=== PATIENT | female | born 1945 | race Caucasian/White ===

== ENCOUNTER → 2016-09-29 | Outpatient (CLI) | payer MEDICARE, OTHER ==
[~2016-09-29] VITALS: Ht 157.5 cm; Wt 54.5 kg
[~2016-09-29] MED LIST: ADV100 IH; ADV250 IH; AMIO200T2 PO; DSS100 PO; FLUT1AER PO; FOLI0.8T2 PO; FOLI1 PO; GUAIF10 PO; HYDR-305 PO; IPRA3AMP4 NEB; LEVO250 PO; LIDO700A TD; MEGE400O4 PO; ONDA4 PO; PREG25 PO; TIOT4MIS5 IH
[2016-09-29 12:29] VITALS: BP 112/48
== END | disposition home or self-care (01) ==
LOC: SRCNTR 12:04
PROVIDERS: ATTEND Internal Medicine Critical Care Medicine
DX: J44.9 Chronic obstructive pulmonary disease, unspecified (principal); E85.9 Amyloidosis, unspecified; I12.0 Hypertensive chronic kidney disease with stage 5 chronic kidney disease or end stage renal disease; N18.6 End stage renal disease; Z72.0 Tobacco use; Z99.2 Dependence on renal dialysis
CPT/HCPCS: G0463

== ENCOUNTER 2016-10-15 09:57 | Emergency (ER) | payer MEDICARE, OTHER ==
[~2016-10-15] VITALS: Ht 162.6 cm; Wt 55.0 kg
[~2016-10-15 09:57] MED LIST changes: -ADV100 IH; -ADV250 IH; -AMIO200T2 PO; -DSS100 PO; -GUAIF10 PO; -HYDR-305 PO; -IPRA3AMP4 NEB; -LEVO250 PO; -LIDO700A TD; -MEGE400O4 PO; -ONDA4 PO
[2016-10-15 11:28] VITALS: BP 129/66
[2016-10-15] MEDS ORDERED: ACETAMINOPHEN/CODEINE 300-30 MG TABLET PO ONE (11:45)
[2016-11-08] MEDS ORDERED: ADV250 IH (08:47)
== END 2016-10-15 12:24 | disposition home or self-care (01) ==
LOC: EMS 09:59
DX: M51.36 Other intervertebral disc degeneration, lumbar region (principal); I13.2 Hypertensive heart and chronic kidney disease with heart failure and with stage 5 chronic kidney disease, or end stage renal disease; I50.9 Heart failure, unspecified; N18.6 End stage renal disease; I48.91 Unspecified atrial fibrillation; Z88.8 Allergy status to other drugs, medicaments and biological substances; J44.9 Chronic obstructive pulmonary disease, unspecified
CPT/HCPCS: 72100; 99284

== ENCOUNTER → 2016-11-08 | Outpatient (CLI) | payer MEDICARE, OTHER ==
[~2016-11-08] VITALS: Ht 162.6 cm; Wt 54.8 kg
[~2016-11-08] MED LIST changes: +ADV100 IH; +ADV250 IH; +AMIO200T2 PO; +DSS100 PO; +GUAIF10 PO; +HYDR-305 PO; +IPRA3AMP4 NEB; +LEVO250 PO; +LIDO700A TD; +MEGE400O4 PO; +ONDA4 PO
[2016-11-08 08:31] VITALS: BP 120/49
== END | disposition home or self-care (01) ==
LOC: HBOWC 07:29
PROVIDERS: ATTEND Emergency Medicine Undersea and Hyperbaric Medicine
DX: L89.322 Pressure ulcer of left buttock, stage 2 (principal); I13.2 Hypertensive heart and chronic kidney disease with heart failure and with stage 5 chronic kidney disease, or end stage renal disease; N18.6 End stage renal disease; I50.9 Heart failure, unspecified; J44.9 Chronic obstructive pulmonary disease, unspecified; I48.91 Unspecified atrial fibrillation; Z72.0 Tobacco use; Z95.1 Presence of aortocoronary bypass graft; Z99.2 Dependence on renal dialysis
CPT/HCPCS: 97597; 97598

== ENCOUNTER → 2016-11-09 | Outpatient (CLI) | payer MEDICARE, OTHER ==
[~2016-11-09] MED LIST changes: -FLUT1AER PO; +IOVERSOL 350 MG/ML 100 ML VIAL ONE; +SODIUM CHLORIDE 0.9% 100 ML ONE
== END | disposition home or self-care (01) ==
LOC: RADMN 10:26
PROVIDERS: ATTEND Nurse Practitioner
DX: J98.11 Atelectasis (principal); K80.20 Calculus of gallbladder without cholecystitis without obstruction; N28.1 Cyst of kidney, acquired; K57.30 Diverticulosis of large intestine without perforation or abscess without bleeding; K44.9 Diaphragmatic hernia without obstruction or gangrene; Z96.642 Presence of left artificial hip joint
CPT/HCPCS: 74177; J7050; Q9967

== ENCOUNTER 2016-11-15 11:28 | Inpatient (IN) | payer MEDICARE, OTHER ==
[~2016-11-15] VITALS: Ht 162.6 cm; Wt 60.2 kg
[~2016-11-15 11:28] MED LIST changes: -ADV100 IH; -AMIO200T2 PO; -DSS100 PO; -GUAIF10 PO; -HYDR-305 PO; -IOVERSOL 350 MG/ML 100 ML VIAL ONE; -IPRA3AMP4 NEB; -LEVO250 PO; -LIDO700A TD; -MEGE400O4 PO; -ONDA4 PO; -SODIUM CHLORIDE 0.9% 100 ML ONE
[2016-11-15] MEDS ORDERED: SODIUM CHLORIDE 0.9% 500 ML IV ONE ×2 (12:00→15:00)
[2016-11-15 12:10] LABS: BASOPHILS % (AUTO) 0.7 % (0.0-2.0); EOSINOPHILS % (AUTO) 0.6 % (1.0-6.0); HEMATOCRIT 34.7 % (36-46); HEMOGLOBIN 11.1 g/dL (12.0-16.0); LYMPHOCYTES # (AUTO) 0.6 K/uL (1.0-4.8); LYMPHOCYTES % (AUTO) 6.8 % (22.0-44.0); MEAN CORPUSCULAR HEMOGLOBIN 32.9 pg (26.0-34.0); MEAN CORPUSCULAR VOLUME 103 fL (80-100); MONOCYTES # (AUTO) 0.3 K/uL (0.1-1.0); MONOCYTES % (AUTO) 3.9 % (2.0-9.0); NEUTROPHILS # (AUTO) 7.5 K/uL (1.8-7.7); PLATELET COUNT (AUTO) 133 K/uL (150-450); RED BLOOD CELL COUNT(AUTO) 3.38 MIL/uL (4.00-5.20); RED CELL DISTRIBUTION WIDTH 19.7 % (11.5-14.5); WHITE BLOOD COUNT (AUTO) 8.5 K/uL (4.5-11.0)
[2016-11-15 12:20] LABS: ANION GAP 4 mmol/L (8-16); CALCIUM, TOTAL 8.5 mg/dL (8.8-10.5); CARBON DIOXIDE 35 mmol/L (22-29); CHLORIDE 98 mmol/L (98-107); GLOMERULAR FILTR. RATE CALC 17 mL/min (>60); POTASSIUM 3.9 mmol/L (3.5-5.1); SODIUM SERUM 137 mmol/L (136-145); UREA NITROGEN, BLOOD 9 mg/dL (7-18)
[2016-11-15 12:24] LABS: INR 1.3 (0.9-1.1)
[2016-11-15 12:25] LABS: ALANINE AMINOTRANSFERASE 9 U/L (12-78); ALBUMIN 2.6 g/dL (3.4-5.0); ASPARTATE AMINOTRANSFERASE 29 U/L (15-37); BILIRUBIN,TOTAL 0.7 mg/dL (0.1-1.0); CREATINE KINASE, TOTAL 46 U/L (26-192); TOTAL PROTEIN, SERUM 7.6 g/dL (6.4-8.2)
[2016-11-15 12:30] LABS: RBC MORPHOLOGY COMMENT ABNORMAL RBC MORPH
[2016-11-15 12:32] LABS: B-TYPE NATRIURETIC PEPTIDE 2210 pg/mL (0-100)
[2016-11-15] MEDS ORDERED: ACETAMINOPHEN 325 MG TABLET PO PRN (14:15)
[2016-11-15] MEDS ORDERED: ONDANSETRON HCL 4 MG/2 ML VIAL IVP PRN ×2 (14:15→15:45)
[2016-11-15] MEDS ORDERED: 0.9% SODIUM CHLORIDE 10 ML SYRINGE IVP PRN (14:15)
[2016-11-15] MEDS ORDERED: SODIUM CHLORIDE 0.9% 1,000 ML IV ONE ×2 (14:15→15:45)
[2016-11-15] MEDS ORDERED: MORPHINE SULFATE 2 MG/ML SYRINGE IVP PRN (15:45)
[2016-11-15] MEDS ORDERED: ZOLPIDEM TARTRATE 5 MG TABLET PO PRN (15:45)
[2016-11-15] MEDS ORDERED: BISACODYL 10 MG RECTAL RECTAL SUPPOSITORY PR PRN (15:45)
[2016-11-15] MEDS ORDERED: MAGNESIUM HYDROXIDE SUSPENSION 30 ML UDCUP PO PRN (15:45)
[2016-11-15] MEDS: DOCUSATE SODIUM 100 MG CAPSULE PO SCH (21:00)
[2016-11-15 21:59] VITALS: BP 106/62
[2016-11-15 23:28] VITALS: BP 105/50
[2016-11-15] MEDS: HYDROCODONE/ACETAMINOPHEN 5-325 MG TABLET PO PRN (23:56)
[2016-11-16 04:53] VITALS: BP 94/52
[2016-11-16 07:18] VITALS: BP 96/58
[2016-11-16] MEDS ORDERED: SODIUM CHLORIDE 0.9% 250 ML IV ONE (08:15)
[2016-11-16] MEDS: VITAMIN B COMP/VIT C/FOLIC ACID CAPSULE PO SCH (08:47)
[2016-11-16] MEDS: PREGABALIN 25 MG CAPSULE PO SCH (08:47)
[2016-11-16] MEDS: PANTOPRAZOLE SODIUM 40 MG DR TABLET PO SCH (08:47)
[2016-11-16] MEDS: FOLIC ACID 1 MG TABLET PO SCH (08:47)
[2016-11-16] MEDS: TIOTROPIUM BROMIDE 18 MCG/INH HANDIHALER [5] IH SCH (08:47)
[2016-11-16] MEDS: DOCUSATE SODIUM 100 MG CAPSULE PO SCH ×2 (09:00→20:42)
[2016-11-16] MEDS ORDERED: DIGOXIN 250 MCG/ML 2 ML AMP IVP ONE (09:30)
[2016-11-16] MEDS: HYDROCODONE/ACETAMINOPHEN 5-325 MG TABLET PO PRN ×2 (10:07→16:19)
[2016-11-16 11:05] VITALS: BP 103/89
[2016-11-16] MEDS: APIXABAN 2.5 MG TABLET PO SCH ×2 (13:03→20:42)
[2016-11-16 15:13] VITALS: BP 116/81
[2016-11-16] MEDS: AMIODARONE HCL 200 MG TABLET PO SCH ×2 (16:18→20:42)
[2016-11-16 19:54] VITALS: BP 107/50
[2016-11-16 23:19] VITALS: BP 105/59
[2016-11-17 04:43] VITALS: BP 93/57
[2016-11-17 07:02] LABS: BASOPHILS % (AUTO) 0.3 % (0.0-2.0); EOSINOPHILS % (AUTO) 1.9 % (1.0-6.0); HEMATOCRIT 32.4 % (36-46); HEMOGLOBIN 10.1 g/dL (12.0-16.0); LYMPHOCYTES # (AUTO) 0.8 K/uL (1.0-4.8); LYMPHOCYTES % (AUTO) 11.9 % (22.0-44.0); MEAN CORPUSCULAR HEMOGLOBIN 32.6 pg (26.0-34.0); MEAN CORPUSCULAR HGB CONC 31.1 G/dL (31.0-37.0); MEAN CORPUSCULAR VOLUME 105 fL (80-100); MONOCYTES # (AUTO) 0.4 K/uL (0.1-1.0); MONOCYTES % (AUTO) 6.1 % (2.0-9.0); NEUTROPHILS # (AUTO) 5.7 K/uL (1.8-7.7); NEUTROPHILS % (AUTO) 79.8 % (40.0-70.0); RED CELL DISTRIBUTION WIDTH 19.9 % (11.5-14.5); WHITE BLOOD COUNT (AUTO) 7.1 K/uL (4.5-11.0)
[2016-11-17 07:23] LABS: CALCIUM, TOTAL 8.2 mg/dL (8.8-10.5); CREATININE 4.54 mg/dL (0.60-1.30); POTASSIUM 4.4 mmol/L (3.5-5.1)
[2016-11-17 07:28] VITALS: BP 91/50
[2016-11-17 09:57] LABS: PLATELET COUNT (AUTO) 108 K/uL (150-450); RBC MORPHOLOGY COMMENT ABNORMAL RBC MORPH
[2016-11-17] MEDS: APIXABAN 2.5 MG TABLET PO SCH ×2 (10:23→20:21)
[2016-11-17] MEDS: VITAMIN B COMP/VIT C/FOLIC ACID CAPSULE PO SCH (10:23)
[2016-11-17] MEDS: PREGABALIN 25 MG CAPSULE PO SCH (10:23)
[2016-11-17] MEDS: DOCUSATE SODIUM 100 MG CAPSULE PO SCH ×2 (10:23→20:20)
[2016-11-17] MEDS: FOLIC ACID 1 MG TABLET PO SCH (10:23)
[2016-11-17] MEDS: TIOTROPIUM BROMIDE 18 MCG/INH HANDIHALER [5] IH SCH (10:23)
[2016-11-17] MEDS: PANTOPRAZOLE SODIUM 40 MG DR TABLET PO SCH (10:23)
[2016-11-17] MEDS: AMIODARONE HCL 200 MG TABLET PO SCH ×3 (10:25→20:21)
[2016-11-17 11:24] VITALS: BP 93/58
[2016-11-17] MEDS ORDERED: VANCOMYCIN HCL 1 GM/D5% WATER 200 ML IV ONE (12:00)
[2016-11-17] MEDS ORDERED: SODIUM CHLORIDE 0.9% 1,000 ML IV ONE (12:29)
[2016-11-17] MEDS ORDERED: DIGOXIN 250 MCG/ML 2 ML AMP IVP ONE (13:30)
[2016-11-17 15:21] VITALS: BP 94/75
[2016-11-17] MEDS ORDERED: SODIUM CHLORIDE 0.9% 250 ML IV ONE (16:54)
[2016-11-17] MEDS ORDERED: VANCOMYCIN HCL 1 GM/D5% WATER 200 ML IV PRN (18:00)
[2016-11-17 19:25] VITALS: BP 115/51
[2016-11-18 01:16] VITALS: BP 120/59
[2016-11-18] MEDS: HYDROCODONE/ACETAMINOPHEN 5-325 MG TABLET PO PRN ×2 (01:27→16:04)
[2016-11-18 04:24] VITALS: BP 115/56
[2016-11-18 07:07] VITALS: BP 93/47
[2016-11-18 07:28] LABS: BASOPHILS % (AUTO) 0.3 % (0.0-2.0); EOSINOPHILS % (AUTO) 1.8 % (1.0-6.0); HEMATOCRIT 31.6 % (36-46); LYMPHOCYTES % (AUTO) 12.8 % (22.0-44.0); MEAN CORPUSCULAR HEMOGLOBIN 33.1 pg (26.0-34.0); MEAN CORPUSCULAR HGB CONC 31.6 G/dL (31.0-37.0); MEAN CORPUSCULAR VOLUME 105 fL (80-100); MONOCYTES # (AUTO) 0.4 K/uL (0.1-1.0); MONOCYTES % (AUTO) 5.8 % (2.0-9.0); NEUTROPHILS # (AUTO) 6.1 K/uL (1.8-7.7); NEUTROPHILS % (AUTO) 79.3 % (40.0-70.0); PLATELET COUNT (AUTO) 102 K/uL (150-450); RED BLOOD CELL COUNT(AUTO) 3.02 MIL/uL (4.00-5.20); RED CELL DISTRIBUTION WIDTH 20.2 % (11.5-14.5); WHITE BLOOD COUNT (AUTO) 7.7 K/uL (4.5-11.0)
[2016-11-18 07:33] LABS: RBC MORPHOLOGY COMMENT ABNORMAL RBC MORPH
[2016-11-18 07:59] LABS: CALCIUM, TOTAL 8.4 mg/dL (8.8-10.5); CREATININE 3.53 mg/dL (0.60-1.30); POTASSIUM 4.6 mmol/L (3.5-5.1)
[2016-11-18 08:00] LABS: DIGOXIN 2.06 ng/mL (0.90-2.00)
[2016-11-18] MEDS: TIOTROPIUM BROMIDE 18 MCG/INH HANDIHALER [5] IH SCH (08:56)
[2016-11-18] MEDS: VITAMIN B COMP/VIT C/FOLIC ACID CAPSULE PO SCH (08:57)
[2016-11-18] MEDS: AMIODARONE HCL 200 MG TABLET PO SCH ×3 (08:57→20:03)
[2016-11-18] MEDS: PANTOPRAZOLE SODIUM 40 MG DR TABLET PO SCH (08:57)
[2016-11-18] MEDS: APIXABAN 2.5 MG TABLET PO SCH ×2 (08:57→20:03)
[2016-11-18] MEDS: DOCUSATE SODIUM 100 MG CAPSULE PO SCH ×2 (08:57→20:02)
[2016-11-18] MEDS: PREGABALIN 25 MG CAPSULE PO SCH (08:57)
[2016-11-18] MEDS: FOLIC ACID 1 MG TABLET PO SCH (08:57)
[2016-11-18 11:00] VITALS: BP 98/43
[2016-11-18] MEDS: ACETAMINOPHEN 325 MG TABLET PO PRN ×2 (12:01→20:08)
[2016-11-18 15:04] VITALS: BP 111/40
[2016-11-18 19:33] VITALS: BP 106/73
[2016-11-19] VITALS (7 sets, daily range): BP systolic 94–118; BP diastolic 44–56
[2016-11-19] MEDS ORDERED: SODIUM CHLORIDE 0.9% 2,000 ML IV ONE (05:36)
[2016-11-19 05:55] LABS: BASOPHILS % (AUTO) 0.6 % (0.0-2.0); HEMOGLOBIN 10.3 g/dL (12.0-16.0); LYMPHOCYTES # (AUTO) 0.9 K/uL (1.0-4.8); LYMPHOCYTES % (AUTO) 14.5 % (22.0-44.0); MEAN CORPUSCULAR HEMOGLOBIN 32.9 pg (26.0-34.0); MEAN CORPUSCULAR HGB CONC 31.2 G/dL (31.0-37.0); MEAN CORPUSCULAR VOLUME 105 fL (80-100); MONOCYTES # (AUTO) 0.4 K/uL (0.1-1.0); MONOCYTES % (AUTO) 6.2 % (2.0-9.0); NEUTROPHILS # (AUTO) 4.8 K/uL (1.8-7.7); NEUTROPHILS % (AUTO) 75.7 % (40.0-70.0); PLATELET COUNT (AUTO) 92 K/uL (150-450); RED BLOOD CELL COUNT(AUTO) 3.13 MIL/uL (4.00-5.20); RED CELL DISTRIBUTION WIDTH 19.5 % (11.5-14.5); WHITE BLOOD COUNT (AUTO) 6.3 K/uL (4.5-11.0)
[2016-11-19 06:27] LABS: CALCIUM, TOTAL 8.4 mg/dL (8.8-10.5); CREATININE 4.38 mg/dL (0.60-1.30); POTASSIUM 4.7 mmol/L (3.5-5.1)
[2016-11-19 09:03] LABS: RBC MORPHOLOGY COMMENT DIMORPHIC RBC
[2016-11-19] MEDS: PANTOPRAZOLE SODIUM 40 MG DR TABLET PO SCH (09:50)
[2016-11-19] MEDS: PREGABALIN 25 MG CAPSULE PO SCH (09:50)
[2016-11-19] MEDS: TIOTROPIUM BROMIDE 18 MCG/INH HANDIHALER [5] IH SCH (09:50)
[2016-11-19] MEDS: VITAMIN B COMP/VIT C/FOLIC ACID CAPSULE PO SCH (09:50)
[2016-11-19] MEDS: AMIODARONE HCL 200 MG TABLET PO SCH ×3 (09:50→20:12)
[2016-11-19] MEDS: APIXABAN 2.5 MG TABLET PO SCH ×2 (09:50→20:12)
[2016-11-19] MEDS: DOCUSATE SODIUM 100 MG CAPSULE PO SCH ×2 (09:51→20:12)
[2016-11-19] MEDS: FOLIC ACID 1 MG TABLET PO SCH (09:56)
[2016-11-19] MEDS: HYDROCODONE/ACETAMINOPHEN 5-325 MG TABLET PO PRN ×2 (14:13→20:12)
[2016-11-19] MEDS ORDERED: VANCOMYCIN HCL 1 GM/D5% WATER 200 ML IV ONE (16:00)
[2016-11-19] MEDS: ACETAMINOPHEN 325 MG TABLET PO PRN (16:46)
[2016-11-20 04:27] VITALS: BP 96/50
[2016-11-20 06:31] LABS: BASOPHILS # (AUTO) 0.02 K/uL (0.00-0.20); BASOPHILS % (AUTO) 0.3 % (0.0-2.0); EOSINOPHILS # (AUTO) 0.14 K/uL (0.00-0.70); EOSINOPHILS % (AUTO) 2.11 % (1.0-6.0); HEMATOCRIT 31.1 % (36-46); HEMOGLOBIN 9.9 g/dL (12.0-16.0); LYMPHOCYTES # (AUTO) 0.7 K/uL (1.0-4.8); LYMPHOCYTES % (AUTO) 10.8 % (22.0-44.0); MEAN CORPUSCULAR HEMOGLOBIN 33.1 pg (26.0-34.0); MEAN CORPUSCULAR HGB CONC 31.7 G/dL (31.0-37.0); MEAN CORPUSCULAR VOLUME 104 fL (80-100); MONOCYTES # (AUTO) 0.4 K/uL (0.1-1.0); MONOCYTES % (AUTO) 6.3 % (2.0-9.0); NEUTROPHILS # (AUTO) 5.4 K/uL (1.8-7.7); NEUTROPHILS % (AUTO) 80.5 % (40.0-70.0); PLATELET COUNT (AUTO) 90 K/uL (150-450); RED BLOOD CELL COUNT(AUTO) 2.98 MIL/uL (4.00-5.20); RED CELL DISTRIBUTION WIDTH 20.3 % (11.5-14.5); WHITE BLOOD COUNT (AUTO) 6.7 K/uL (4.5-11.0)
[2016-11-20 06:46] LABS: ALBUMIN 1.9 g/dL (3.4-5.0); BILIRUBIN,TOTAL 0.7 mg/dL (0.1-1.0); CALCIUM, TOTAL 7.8 mg/dL (8.8-10.5); CREATININE 3.42 mg/dL (0.60-1.30); POTASSIUM 5.4 mmol/L (3.5-5.1); TOTAL PROTEIN, SERUM 6.3 g/dL (6.4-8.2)
[2016-11-20 06:58] VITALS: BP 96/49
[2016-11-20 08:05] LABS: RBC MORPHOLOGY COMMENT ABNORMAL RBC MORPH
[2016-11-20] MEDS ORDERED: AMIO200T2 PO (08:43)
[2016-11-20] MEDS: TIOTROPIUM BROMIDE 18 MCG/INH HANDIHALER [5] IH SCH (08:44)
[2016-11-20] MEDS: DOCUSATE SODIUM 100 MG CAPSULE PO SCH (08:45)
[2016-11-20] MEDS: AMIODARONE HCL 200 MG TABLET PO SCH (08:45)
[2016-11-20] MEDS: FOLIC ACID 1 MG TABLET PO SCH (08:45)
[2016-11-20] MEDS: PANTOPRAZOLE SODIUM 40 MG DR TABLET PO SCH (08:45)
[2016-11-20] MEDS: PREGABALIN 25 MG CAPSULE PO SCH (08:45)
[2016-11-20] MEDS: VITAMIN B COMP/VIT C/FOLIC ACID CAPSULE PO SCH (08:45)
[2016-11-20] MEDS: APIXABAN 2.5 MG TABLET PO SCH (08:45)
[2016-11-20 11:45] VITALS: BP 108/52
[2016-11-20] MEDS: HYDROCODONE/ACETAMINOPHEN 5-325 MG TABLET PO PRN (13:45)
[2016-11-22] MEDS ORDERED: EPOETIN ALFA 10,000 UNITS/ML 2 ML VIAL SQ SCH (09:00)
== END 2016-11-20 14:05 | DRG 871 ==
LOC: EMS 11:30 → 5N 18:53
PROVIDERS: ADMIT Internal Medicine; ATTEND Internal Medicine
PROC: 5A1D60Z (ICD-10-PCS; principal; 2016-11-17)
DX: A41.89 Other specified sepsis (principal); N18.6 End stage renal disease; E43 Unspecified severe protein-calorie malnutrition; E85.9 Amyloidosis, unspecified; I50.32 Chronic diastolic (congestive) heart failure; I13.2 Hypertensive heart and chronic kidney disease with heart failure and with stage 5 chronic kidney disease, or end stage renal disease; R78.81 Bacteremia; I42.8 Other cardiomyopathies; Z94.84 Stem cells transplant status; E87.8 Other disorders of electrolyte and fluid balance, not elsewhere classified; D64.9 Anemia, unspecified; J44.9 Chronic obstructive pulmonary disease, unspecified; I34.0 Nonrheumatic mitral (valve) insufficiency; I35.0 Nonrheumatic aortic (valve) stenosis; I48.0 Paroxysmal atrial fibrillation; D63.8 Anemia in other chronic diseases classified elsewhere; D69.6 Thrombocytopenia, unspecified; L89.152 Pressure ulcer of sacral region, stage 2; Z68.22 Body mass index [BMI] 22.0-22.9, adult; Z99.2 Dependence on renal dialysis; Z79.51 Long term (current) use of inhaled steroids; Z79.899 Other long term (current) drug therapy; Z90.49 Acquired absence of other specified parts of digestive tract; Z95.810 Presence of automatic (implantable) cardiac defibrillator; Z87.01 Personal history of pneumonia (recurrent)
CPT/HCPCS: 87040; 87081; 87340; 90935; 93005; 93306; 96360; 96361; 97162; 97166; 99285; J1160; J3370; J7030; J7040; J7050

== ENCOUNTER → 2017-01-11 | Outpatient (CLI) | payer MEDICARE, OTHER ==
[~2017-01-11] MED LIST changes: +ADV100 IH; +AMIO200T2 PO; +DSS100 PO; +GUAIF10 PO; +HYDR-305 PO; +IPRA3AMP4 NEB; +LEVO250 PO; +LIDO700A TD; +MEGE400O4 PO; +ONDA4 PO
== END | disposition home or self-care (01) ==
LOC: RADMN 09:56
PROVIDERS: ATTEND Internal Medicine
DX: M41.86 Other forms of scoliosis, lumbar region (principal); M47.816 Spondylosis without myelopathy or radiculopathy, lumbar region; J90 Pleural effusion, not elsewhere classified; J98.11 Atelectasis; R91.8 Other nonspecific abnormal finding of lung field; N26.1 Atrophy of kidney (terminal); R18.8 Other ascites; M48.05 Spinal stenosis, thoracolumbar region; M48.06 Spinal stenosis, lumbar region; M48.07 Spinal stenosis, lumbosacral region; I77.811 Abdominal aortic ectasia; K57.30 Diverticulosis of large intestine without perforation or abscess without bleeding; I70.0 Atherosclerosis of aorta; M85.88 Other specified disorders of bone density and structure, other site; M25.78 Osteophyte, vertebrae
CPT/HCPCS: 72131

== ENCOUNTER 2017-01-16 09:10 | Inpatient (IN) | payer MEDICARE, OTHER ==
[~2017-01-16] VITALS: Ht 165.1 cm; Wt 58.2 kg
[~2017-01-16 09:10] MED LIST changes: -ADV100 IH; +ATROPINE SULFATE 0.1 MG/ML 10 ML SYRINGE IVP ONE; -DSS100 PO; +EPINEPHrine 1:10,000 [1 MG/10 ML] SYRINGE IVP ONE; -GUAIF10 PO; -HYDR-305 PO; -IPRA3AMP4 NEB; -LEVO250 PO; -LIDO700A TD; -MEGE400O4 PO; -ONDA4 PO; +SODIUM BICARBONATE [ADULT] 8.4% 50 MEQ/50 ML SYRINGE IVP ONE
[2017-01-16] MEDS ORDERED: HYDR-305 PO (09:25)
[2017-01-16] MEDS ORDERED: DSS100 PO (09:25)
[2017-01-16] MEDS ORDERED: ADV100 IH (09:25)
[2017-01-16] MEDS ORDERED: LEVO250 PO (09:25)
[2017-01-16] MEDS ORDERED: LIDO700A TD (09:25)
[2017-01-16] MEDS ORDERED: ONDA4 PO (09:25)
[2017-01-16 09:47] LABS: EOSINOPHILS % (AUTO) 0.2 % (1.0-6.0); HEMATOCRIT 36.3 % (36-46); LYMPHOCYTES # (AUTO) 0.6 K/uL (1.0-4.8); LYMPHOCYTES % (AUTO) 3.4 % (22.0-44.0); MEAN CORPUSCULAR HEMOGLOBIN 31.1 pg (26.0-34.0); MEAN CORPUSCULAR HGB CONC 30.3 G/dL (31.0-37.0); MEAN CORPUSCULAR VOLUME 103 fL (80-100); MONOCYTES # (AUTO) 0.3 K/uL (0.1-1.0); MONOCYTES % (AUTO) 1.7 % (2.0-9.0); NEUTROPHILS # (AUTO) 17.7 K/uL (1.8-7.7); PLATELET COUNT (AUTO) 83 K/uL (150-450); RED BLOOD CELL COUNT(AUTO) 3.54 MIL/uL (4.00-5.20); WHITE BLOOD COUNT (AUTO) 18.7 K/uL (4.5-11.0)
[2017-01-16 09:57] LABS: ANION GAP 9 mmol/L (8-16); CALCIUM, TOTAL 9.4 mg/dL (8.8-10.5); CARBON DIOXIDE 29 mmol/L (22-29); CHLORIDE 97 mmol/L (98-107); CREATININE 4.35 mg/dL (0.60-1.30); GLOMERULAR FILTR. RATE CALC 10 mL/min (>60); NEUTROPHILS % (AUTO) 94.7 % (40.0-70.0); POTASSIUM 4.6 mmol/L (3.5-5.1); SODIUM SERUM 135 mmol/L (136-145); UREA NITROGEN, BLOOD 38 mg/dL (7-18)
[2017-01-16 10:03] LABS: ALANINE AMINOTRANSFERASE 22 U/L (12-78); ASPARTATE AMINOTRANSFERASE 72 U/L (15-37); BILIRUBIN,TOTAL 1.4 mg/dL (0.1-1.0); CREATINE KINASE, TOTAL 31 U/L (26-192); TOTAL PROTEIN, SERUM 7.1 g/dL (6.4-8.2)
[2017-01-16 10:18] LABS: B-TYPE NATRIURETIC PEPTIDE 1410 pg/mL (0-100)
[2017-01-16 10:21] LABS: INR 1.7 (0.9-1.1); PROTHROMBIN TIME 18.3 SEC (9.4-11.6)
[2017-01-16] MEDS ORDERED: MEGE400O4 PO (10:42)
[2017-01-16] MEDS ORDERED: GUAIF10 PO (10:42)
[2017-01-16] MEDS ORDERED: IPRA3AMP4 NEB (10:42)
[2017-01-16] MEDS ORDERED: CefTRIAXone 1 GM/DEXTROSE 50 ML IV ONE (11:00)
[2017-01-16] MEDS ORDERED: HYDROCODONE/ACETAMINOPHEN 5-325 MG TABLET PO ONE (12:45)
[2017-01-16] MEDS ORDERED: HYDROCODONE/ACETAMINOPHEN 5-325 MG TABLET PO PRN (19:30)
[2017-01-16] MEDS ORDERED: SODIUM CHLORIDE 0.9% 250 ML IV ONE ×3 (20:28→22:00)
[2017-01-17] VITALS (9 sets, daily range): BP systolic 53–125; BP diastolic 41–74
[2017-01-17] MEDS ORDERED: OxyCODONE HCL/ACETAMINOPHEN 5-325 MG TABLET PO PRN ×2 (00:45)
[2017-01-17] MEDS ORDERED: DOCUSATE SODIUM 100 MG CAPSULE PO SCH (00:45)
[2017-01-17] MEDS ORDERED: ALBUTEROL SULFATE/IPRATROPIUM 100-20 MCG/SPRAY 4 GM INHALER IH PRN (00:45)
[2017-01-17] MEDS ORDERED: ONDANSETRON HCL 4 MG/2 ML VIAL IVP PRN (00:45)
[2017-01-17] MEDS: DOCUSATE SODIUM 100 MG CAPSULE PO SCH ×3 (00:45→15:24)
[2017-01-17] MEDS ORDERED: 0.9% SODIUM CHLORIDE 10 ML SYRINGE IVP PRN (00:45)
[2017-01-17] MEDS ORDERED: ACETAMINOPHEN 325 MG TABLET PO PRN (00:45)
[2017-01-17] MEDS ORDERED: MAGNESIUM HYDROXIDE SUSPENSION 30 ML UDCUP PO PRN (00:45)
[2017-01-17] MEDS ORDERED: VANCOMYCIN HCL 1 GM/D5% WATER 200 ML IV PRN (01:15)
[2017-01-17] MEDS ORDERED: SODIUM CHLORIDE 0.9% 100 ML ONE (01:26)
[2017-01-17] MEDS ORDERED: VANCOMYCIN HCL 1.25 GM in DEXTROSE 5%-WATER 250 ML IV ONE (02:00)
[2017-01-17] MEDS: DIGOXIN 250 MCG/ML 2 ML AMP IVP SCH ×3 (03:24→12:00)
[2017-01-17] MEDS: PIPERACILLIN SODIUM/TAZOBACTAM 2.25 GM in DEXTROSE 5%-WATER 50 ML IV SCH ×4 (03:28→22:20)
[2017-01-17] MEDS: FUROSEMIDE 40 MG/4 ML VIAL IVP SCH ×2 (09:00→15:24)
[2017-01-17] MEDS ORDERED: TIOTROPIUM BROMIDE 18 MCG/INH HANDIHALER [5] IH SCH (09:00)
[2017-01-17] MEDS: MEGESTROL ACETATE 400 MG/10 ML SUSPENSION UDCUP PO SCH ×2 (09:00→15:25)
[2017-01-17] MEDS: PANTOPRAZOLE SODIUM 40 MG/VIAL IVP SCH ×2 (09:00→15:25)
[2017-01-17] MEDS ORDERED: NOREPINEPHRINE BITARTRATE 8 MG in DEXTROSE 5%-WATER 242 ML IV PRN (09:38)
[2017-01-17] MEDS ORDERED: NOREPINEPHRINE BITARTRATE 16 MG in DEXTROSE 5%-WATER 234 ML IV PRN (09:38)
[2017-01-17] MEDS ORDERED: ALBUMIN HUMAN 25%-12.5GM/50ML 50 ML IV ONE (10:45)
[2017-01-17] MEDS ORDERED: RAPID SEQUENCE KIT [RSI] 1 EACH KIT ONE ×2 (10:53)
[2017-01-17] MEDS ORDERED: SODIUM CHLORIDE 0.9% 500 ML IV ONE (11:09)
[2017-01-17] MEDS ORDERED: VASOPRESSIN 100 UNITS in DEXTROSE 5%-WATER 245 ML IV PRN (12:15)
[2017-01-17 12:18] LABS: ABG BASE EXCESS -8.1 mmol/L (-2.0-3.0); ABG HCO3 18.8 mmol/L (22.0-26.0); ABG OXYHEMOGLOBIN 98.1 % (94.0-100.0); ABG PCO2 33 mmHg (35-45); ABG PH 7.349 (7.35-7.450); TEMPERATURE, FAHRENHEIT, BG 98.6 FAHREN (96.0-98.6)
[2017-01-17 12:19] LABS: ALLEN TEST, BLOOD GAS Positive
[2017-01-17 12:56] LABS: BASOPHILS # (AUTO) 0.36 K/uL (0.00-0.20); BASOPHILS % (AUTO) 1.8 % (0.0-2.0); EOSINOPHILS # (AUTO) 0.12 K/uL (0.00-0.70); EOSINOPHILS % (AUTO) 0.59 % (1.0-6.0); HEMATOCRIT 38.8 % (36-46); HEMOGLOBIN 11.8 g/dL (12.0-16.0); LYMPHOCYTES # (AUTO) 0.7 K/uL (1.0-4.8); LYMPHOCYTES % (AUTO) 3.3 % (22.0-44.0); MEAN CORPUSCULAR HEMOGLOBIN 31.7 pg (26.0-34.0); MEAN CORPUSCULAR HGB CONC 30.4 G/dL (31.0-37.0); MEAN CORPUSCULAR VOLUME 104 fL (80-100); MONOCYTES # (AUTO) 0.3 K/uL (0.1-1.0); MONOCYTES % (AUTO) 1.4 % (2.0-9.0); NEUTROPHILS # (AUTO) 18.3 K/uL (1.8-7.7); PLATELET COUNT (AUTO) 79 K/uL (150-450); RED BLOOD CELL COUNT(AUTO) 3.72 MIL/uL (4.00-5.20); RED CELL DISTRIBUTION WIDTH 18.7 % (11.5-14.5); WHITE BLOOD COUNT (AUTO) 19.7 K/uL (4.5-11.0)
[2017-01-17 12:58] LABS: NEUTROPHILS % (AUTO) 92.9 % (40.0-70.0); RBC MORPHOLOGY COMMENT ABNORMAL RBC MORPH
[2017-01-17 13:04] LABS: ANION GAP 14 mmol/L (8-16); CALCIUM, TOTAL 9.1 mg/dL (8.8-10.5); CARBON DIOXIDE 23 mmol/L (22-29); CHLORIDE 91 mmol/L (98-107); CREATININE 5.03 mg/dL (0.60-1.30); GLOMERULAR FILTR. RATE CALC 8 mL/min (>60); POTASSIUM 4.8 mmol/L (3.5-5.1); SODIUM SERUM 128 mmol/L (136-145); UREA NITROGEN, BLOOD 46 mg/dL (7-18)
[2017-01-17 13:10] LABS: ALANINE AMINOTRANSFERASE 113 U/L (12-78); ALBUMIN 2.2 g/dL (3.4-5.0); ASPARTATE AMINOTRANSFERASE 377 U/L (15-37); BILIRUBIN,TOTAL 1.9 mg/dL (0.1-1.0); TOTAL PROTEIN, SERUM 7.1 g/dL (6.4-8.2)
[2017-01-17 13:23] LABS: LACTIC ACID 7.1 mmol/L (0.4-2.0)
[2017-01-17 13:38] LABS: GLUCOSE,POINT OF CARE 93 MG/DL (70-110)
[2017-01-17] MEDS: MIDODRINE HCL 5 MG TABLET PO SCH ×2 (14:44→15:25)
[2017-01-17 14:49] LABS: REFLEX LACTIC ACID? YES YES
[2017-01-17 17:48] LABS: CREATINE KINASE MB 1.8 ng/mL (0-5); CREATINE KINASE, TOTAL 81 U/L (26-192)
[2017-01-17] MEDS: PHENYLEPHRINE 200 MG/D5%-WATER 250 ML IV PRN ×2 (19:14→19:43)
[2017-01-17] MEDS: NOREPINEPHRINE 4 MG/D5%-WATER 250 ML IV PRN ×2 (19:34→22:21)
[2017-01-17] MEDS ORDERED: BUDESONIDE 0.5 MG/2 ML NEB SOLUTION NEB SCH (21:00)
[2017-01-17 23:41] LABS: ABG A-A DIFF O2 546.3 mmHg (10-20.0); ABG BASE EXCESS -20.5 mmol/L (-2.0-3.0); ABG HCO3 10.4 mmol/L (22.0-26.0); ABG OXYHEMOGLOBIN 97.7 % (94.0-100.0); ABG PCO2 27 mmHg (35-45); TEMPERATURE, FAHRENHEIT, BG 98.6 FAHREN (96.0-98.6)
[2017-01-17 23:51] LABS: ABG PH 7.123 (7.35-7.450)
[2017-01-18] VITALS: BP 134/38
[2017-01-18] MEDS ORDERED: SODIUM BICARBONATE 150 MEQ in DEXTROSE 5%-WATER 1,000 ML IV SCH ×2
[2017-01-18] MEDS ORDERED: SODIUM BICARBONATE [ADULT] 8.4% 50 MEQ/50 ML SYRINGE IVP ONE
[2017-01-18] MEDS: NOREPINEPHRINE 4 MG/D5%-WATER 250 ML IV PRN (01:12)
[2017-01-18] MEDS ORDERED: DIGOXIN 250 MCG/ML 2 ML AMP IVP SCH (09:00)
== END 2017-01-18 04:38 | disposition expired | DRG 871 ==
LOC: EMS 09:13 → 5N 18:29 → UNDOADMIN 19:01 → 5N 01-17 10:43 → ICU 01-17 10:43 → UNDODISIN 01-18 04:38
PROVIDERS: ADMIT Internal Medicine; ATTEND Internal Medicine
PROC: 5A1935Z Respiratory Ventilation, Less than 24 Consecutive Hours (ICD-10-PCS; principal; 2017-01-17)
PROC: 06HM33Z Insertion of Infusion Device into Right Femoral Vein, Percutaneous Approach (ICD-10-PCS; 2017-01-17)
PROC: B54CZZA Ultrasonography of Left Lower Extremity Veins, Guidance (ICD-10-PCS; 2017-01-17)
PROC: 0BH18EZ Insertion of Endotracheal Airway into Trachea, Via Natural or Artificial Opening Endoscopic (ICD-10-PCS; 2017-01-17)
DX: A41.9 Sepsis, unspecified organism (principal); J96.01 Acute respiratory failure with hypoxia; E43 Unspecified severe protein-calorie malnutrition; J18.9 Pneumonia, unspecified organism; N18.6 End stage renal disease; R57.9 Shock, unspecified; N17.9 Acute kidney failure, unspecified; E87.1 Hypo-osmolality and hyponatremia; J44.0 Chronic obstructive pulmonary disease with (acute) lower respiratory infection; I13.2 Hypertensive heart and chronic kidney disease with heart failure and with stage 5 chronic kidney disease, or end stage renal disease; I42.8 Other cardiomyopathies; E85.9 Amyloidosis, unspecified; Z94.84 Stem cells transplant status; Z66 Do not resuscitate; I50.9 Heart failure, unspecified; I25.10 Atherosclerotic heart disease of native coronary artery without angina pectoris; I46.9 Cardiac arrest, cause unspecified; I48.0 Paroxysmal atrial fibrillation; Z68.21 Body mass index [BMI] 21.0-21.9, adult; Z79.899 Other long term (current) drug therapy; Z79.891 Long term (current) use of opiate analgesic; Z79.51 Long term (current) use of inhaled steroids; Z79.2 Long term (current) use of antibiotics; Z90.49 Acquired absence of other specified parts of digestive tract; Z99.2 Dependence on renal dialysis; Z95.810 Presence of automatic (implantable) cardiac defibrillator; Z87.891 Personal history of nicotine dependence; Z87.01 Personal history of pneumonia (recurrent); Z82.49 Family history of ischemic heart disease and other diseases of the circulatory system
CPT/HCPCS: 71250; 72192; 74150; 82805; 82962; 83605; 87040; 87081; 93005; 93306; 94002; 94640; 96361; 96365; 99285; C9113; J0171; J0461; J0696; J1160; J1940; J2370; J2543; J3370; J3490; J7040; J7050; J7060; P9047